=== PATIENT | female | born 1965 | race Caucasian/White ===

== ENCOUNTER 2017-02-14 14:22 | Emergency (ER) | payer BC ==
[~2017-02-14] VITALS: Ht 177.8 cm; Wt 58.1 kg
[2017-02-14 14:24] VITALS: TEMP 36.5; Ht 177.8 cm; Wt 58.1 kg
--- NOTE | 2017-02-14 15:03 | DIAGNOSTIC IMAGING REPORT ---
LEFT KNEE 3 VIEWS HISTORY: Left knee swelling COMPARISON: None. FINDINGS: There is no fracture or dislocation. Small moderate knee effusion and prepatellar soft tissue swelling. 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 No radiopaque foreign bodies. IMPRESSION: 1. No acute fracture within the left knee. 2. Small to moderate knee effusion and prepatellar soft tissue swelling. Electronically signed by: Rob House M.D. 02/14/2017 3:01 PM Dictated Date/Time: 02/14/2017 2:57 PM
[2017-02-14] MEDS ORDERED: LISD40CA PO (15:06)
[2017-02-14] MEDS ORDERED: NAPR1TAB9 PO (15:06)
[2017-02-14] MEDS ORDERED: CEPH500C PO (15:40)
[2017-02-14 16:00] VITALS: BP 147/63; PULSE 81; O2SAT 97
--- NOTE | 2017-02-14 20:02 | EMERGENCY ROOM VISIT NOTE ---
ED Visit Note First contact with patient: 14:38 CHIEF COMPLAINT: Left Knee pain HISTORY OF PRESENT ILLNESS: This 51-year-old white female patient has had redness, swelling, and increased warmth of the front of the knee for 24 hours. She was walking in heels on and tripped and fell onto her left knee. She had immediate onset of pain. She did sustain a small abrasion on the anterior surface of the knee. She was treated by her sister who put an Phill wrap on the knee. She states the pain is getting worse and she is having more difficulty walking. No fevers or chills. No streaking. No other treatment. She is here from [place] for the . REVIEW OF SYSTEM: HEENT: No dizziness, visual problems, hearing loss, or tinnitus. There is no difficulty swallowing and no oral lesions are present. PULMONARY: No cough, shortness of breath, sputum production or hemoptysis. CARDIOVASCULAR: No chest pain, palpitations, shortness of breath or peripheral edema. GASTROINTESTINAL: No diarrhea, constipation, nausea, vomiting, or abdominal pain. GENITOURINARY: No dysuria, frequency, urgency or nocturia. NEUROLOGIC: No weakness, muscle tenderness, epilepsy or history of neurological problems. MUSCULOSKELETAL: No prior history of joint tenderness/swelling. No history of arthritis or arthralgias. SKIN: No rashes or lesions. PSYCHIATRIC: No history of depression or mental illness. ENDOCRINE: No history of diabetes, thyroid disorders, or abnormal hair growth. PMH: The patient is healthy; there is no significant medical or surgical history. Family History: Noncontributory. Current medications: Vyvanse, Aleve, Allergies: NKDA SOCIAL HISTORY: Patient lives at home in [place]. . Employed. No tobacco use. PHYSICAL EXAM: Vital Signs: Reviewed Nurse's notes. Afebrile. MENTAL STATUS: Alert, oriented, and cooperative. Sitting on a bed. No acute distress. Skin: Warm and dry with good turgor. No rashes. No ecchymosis. Left knee has significant redness over the anterior portion. It is approximately 10-12 cm in diameter. It is not circumferential. She has several small abrasions present over the anterior knee, the largest of which is lateral. It is tender to touch. The patient is not diaphoretic. There is prepatellar bogginess and fullness. She also has an intra-articular effusion. Musculoskeletal: Left knee evaluation reveals full terminal extension. She is able to perform straight leg raise. No defect in the patellar tendon or quadriceps tendon. Stable cruciate and collateral ligaments. No discomfort with palpation over the medial or lateral joint lines. She has focal discomfort with palpation over her prepatellar bursa and the lateral aspect of the patella. Mild discomfort with passive rocking of the patella. The patient walks with an antalgic gait. Neurologic: Gross sensation is intact across left leg by soft touch. Peripheral pulses are 2+. Data: Radiographic imaging obtained today of the knee shows a questionable nondisplaced fracture of the lateral aspect of the patella. Bipartite patella may have a similar rinse. Films were read by radiology. DIAGNOSIS: Left knee Pre-patellar bursitis. Left knee effusion DISCHARGE INSTRUCTIONS: Patient was educated regarding today's findings. Conservative care measures were discussed. She denies any prior knowledge of bipartite patella. Patella is tender currently but may be related to her contusion and swelling. There is no increase in pain with straight leg raise. As a precaution, she was placed in compressive knurling machine tender for edema control and a Knee immobilizer for 3 - 5 days until the pain subsides. Ibuprofen, 600 mg every 6 hours if needed for pain or Aleve 2 tablets twice a day with food. Ice and elevation to the knee for the next 72 hours. Stay off the leg as much as possible. She was prescribed Keflex 500 mg 4 times a day 7 days. Line of demarcation was placed around the current redness. If it exceeds the current line, she should return to the ED for IV antibiotics. Prepatellar bursitis handout was provided. Possibility of injury to the articular cartilage was also discussed. She was reassured that I do not suspect ligamentous injury, tendon injury, or tinnitus, injury. Possibility of patellar fracture, old patellar injury, or bipartite anomaly was also discussed at length. Crutches were offered. Patient declined. Follow-up with her orthopedist at home when she returns to [place] for new imaging and evaluation. Return to this ED sooner if symptoms are not improving. Current/Historical Medications Scheduled Cephalexin Monohydrate (Keflex), 500 MG PO QID Lisdexamfetamine Dimesylate (Vyvanse), 1 TAB PO DAILY Naproxen (Aleve), 440 MG PO PRN UD Vital Signs Date Time Temp Pulse Resp B/P (MAP) Pulse Ox O2 Delivery O2 Flow Rate FiO2 02/14/17 16:00 81 18 147/63 97 02/14/17 14:24 36.5 92 18 140/91 100 Room Air Departure Information Impression Primary Impression: Bipartite patella Additional Impression: Prepatellar bursitis, left knee Dispostion Home / Self-Care Condition GOOD Prescriptions Cephalexin Monohydrate (Keflex) 500 Mg Cap 500 MG PO QID, #28 CAP Prov: Gurpreet Almanza,P.A. 02/14/17 Forms HOME CARE DOCUMENTATION FORM, MOTRIN USE, TYLENOL USE, IMPORTANT VISIT INFORMATION Patient Instructions Prepatellar Bursitis, [facility] Additional Instructions Use the knee immobilizer when walking and sleeping Gentle range of motion of the knee to tolerance when awake Monitor the line of demarcation closely-if the redness is exceeding the line by more than a finger breath, return to the ED for reevaluation Also return for any fevers, chills, or sweats Tylenol and Motrin every 6 hours as needed for mild discomfort Keflex 1 pill 4 times a day 7 days Ice and elevate the knee frequently to reduce pain and swelling Follow-up with your orthopedist in [place] for reimaging of the knee within 3 weeks Problem Qualifiers
== END 2017-02-14 16:01 | disposition home or self-care (01) ==
LOC: C.EDB 14:24 → C.EDD 16:01
DX: Q74.1 Congenital malformation of knee (principal); M70.42 Prepatellar bursitis, left knee; S80.212A Abrasion, left knee, initial encounter; W01.0XXA Fall on same level from slipping, tripping and stumbling without subsequent striking against object, initial encounter